=== PATIENT | female | born 1960 | race Caucasian/White ===

== ENCOUNTER → 2016-07-22 | Outpatient (CLI) | payer OTHER ==
--- NOTE | 2016-07-22 16:54 | Diagnostic Imaging Report ---
INDICATION: Pain in the lower back and thoracic spine. FINDINGS: Frontal, lateral, and swimmer's views of the thoracic spine demonstrate no fracture or subluxation. Small anterior osteophytes are seen in the mid to upper thoracic spine. No osseous stenosis is seen. IMPRESSION: There are mild degenerative changes of the thoracic spine. Dictated by: Dictated on workstation # [id number]
--- NOTE | 2016-07-22 16:55 | Diagnostic Imaging Report ---
INDICATION: Back pain onset two years ago, stabbing pain in [id number]-[id number]-nojqr back. No known trauma or injury. 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 No fracture is identified. Disc space narrowing is present at L2-L3 with a 2 mm retrolisthesis. Sclerotic changes are seen to the adjacent endplates. Mild disc space narrowing is present at L3-L4. Ltiq-zo-oqilnbtp disc space narrowing is present at L4-L5 with facet arthropathy. L5-S1 level demonstrates mild disc space narrowing with facet arthropathy. IMPRESSION: Degenerative changes of the lumbar spine are present as above. Dictated by: Dictated on workstation # [id number]
== END ==
LOC: RAD 15:55
PROVIDERS: ATTEND Chiropractor
DX: M47.815 Spondylosis without myelopathy or radiculopathy, thoracolumbar region (principal)
CPT/HCPCS: 72072; 72100

== ENCOUNTER → 2016-09-22 | Outpatient (CLI) | payer OTHER ==
--- NOTE | 2016-09-22 11:08 | Diagnostic Imaging Report ---
PROCEDURE: CT abdomen and pelvis without contrast. TECHNIQUE: Multiple contiguous axial images were obtained through the abdomen and pelvis without the use of intravenous contrast. INDICATION: Abdominal pain. Fever. FINDINGS: The lung bases appear clear. The liver is hypodense compatible with diffuse fatty infiltration. The spleen is mildly enlarged at 13.7 x 6 x 8.8 cm. The pancreas, and the adrenal glands appear unremarkable. Cholecystectomy clips are seen. The abdominal aorta is normal in caliber. No para-aortic significantly enlarged lymph node is seen. The kidneys demonstrate no hydronephrosis. No urinary tract stones are seen. The bladder appears unremarkable. There is suggestion of prior hysterectomy. Correlate with surgical history. There is no bowel obstruction. The appendix appears normal. The cecum is displaced to the midline in the lower abdomen. There is an area of fatty stranding seen that is well marginated and measures 6.6 x 4.5 x 5.3 cm compatible with panniculitis or omental infarct. The tissue edema does not appear to involve the adjacent small bowel loops. There is periumbilical abdominal wall laxity and mild diastasis of the recti seen. No significant free fluid or fluid collection in the abdomen or pelvis is seen. Mild degenerative changes in the lumbar spine is seen. IMPRESSION: 1. A 6.6 cm well defined area of fatty stranding seen in the anterior midline along the lower abdomen is suggestive of panniculitis or fat necrosis. The process does not appear to involve the adjacent small bowel loops. 2. Mild abdominal wall laxity around the umbilicus region. 3. Hepatic steatosis. 4. Mild splenomegaly. Dictated by: Dictated on workstation # [id number]
== END ==
LOC: RAD 10:13
PROVIDERS: ATTEND Family Medicine
DX: R93.5 Abnormal findings on diagnostic imaging of other abdominal regions, including retroperitoneum (principal); K76.0 Fatty (change of) liver, not elsewhere classified; R10.84 Generalized abdominal pain; R50.9 Fever, unspecified
CPT/HCPCS: 74176

== ENCOUNTER → 2016-10-27 | Outpatient (CLI) | payer OTHER ==
--- NOTE | 2016-10-27 11:09 | Diagnostic Imaging Report ---
Left breast diagnostic mammogram. INDICATION: Calcifications found on screening mammogram of 10/13/16. The current study was also evaluated with a Computer Aided Detection (CAD) system. Comparison exam 10/13/16 and 10/04/15 is reviewed. FINDINGS: Magnification views of these calcifications in the central inferior medial aspect of the left breast demonstrate 4 calcifications with coarse and punctate character. No associated mass is seen. IMPRESSION: A few calcifications with coarse and punctate appearance in the central aspect of the inferior medial left breast. They are favored to be benign. Ultrasound evaluation to rule out an associated mass is pending. ACR BI-RADS Category 0: Incomplete. (Needs additional imaging evaluation). Result letter will be mailed to the patient. Note: At least 10% of breast cancer is not imaged by mammography. Dictated by: Dictated on workstation # [id number]
--- NOTE | 2016-10-27 11:13 | Diagnostic Imaging Report ---
EXAMINATION: Left breast ultrasound. INDICATION: Calcifications in the inferior medial aspect of the left breast. FINDINGS: The medial aspect and retroareolar region of the left breast were scanned with no underlying abnormality seen. IMPRESSION: Negative study. The calcifications are likely benign. A 6 month followup left breast mammogram is recommended to observe these calcifications. ACR BI-RADS Category 3: Probably benign findings. Dictated by: Dictated on workstation # [id number]
== END ==
LOC: RAD 08:40
PROVIDERS: ATTEND Obstetrics & Gynecology Female Pelvic Medicine and Reconstructive Surgery
DX: R92.8 Other abnormal and inconclusive findings on diagnostic imaging of breast (principal)
CPT/HCPCS: 76642

== ENCOUNTER → 2017-06-15 | Outpatient (CLI) | payer OTHER ==
--- NOTE | 2017-06-15 19:42 | Diagnostic Imaging Report ---
INDICATION: Left breast calcifications. Patient presents for six-month followup. Correlation is made with prior mammograms from 10/27/2016, 10/13/2016 and 10/04/2015. The current study was also evaluated with a Computer Aided Detection (CAD) system. Patient returned and magnification CC and ML views as well as 3-D CC, MLO and mediolateral views of the left breast were obtained. FINDINGS: Calcifications noted in the lower and slightly inner left breast appear less prominent on today's study and appear benign. No new calcifications are seen. No new mass is detected. Left axilla is unremarkable. IMPRESSION: Stable left mammogram and left breast calcifications. Patient may return to routine annual screening mammography in 6 months. ACR BI-RADS Category 2: Benign findings. Result letter will be mailed to the patient. Note: At least 10% of breast cancer is not imaged by mammography. Dictated by: Dictated on workstation # [id number]
== END ==
LOC: RAD 13:16
PROVIDERS: ATTEND Obstetrics & Gynecology Female Pelvic Medicine and Reconstructive Surgery
DX: R92.1 Mammographic calcification found on diagnostic imaging of breast (principal)

== ENCOUNTER → 2017-11-24 | Outpatient (CLI) | payer BC, OTHER ==
--- NOTE | 2017-11-25 09:21 | Diagnostic Imaging Report ---
Indication: Routine screening. Comparison is made to prior exam from 10/13/2016 and 10/04/2015. 2-D and 3-D bilateral screening mammography was performed with CAD. Scattered fibroglandular densities are identified bilaterally. Benign nodular densities appear stable bilaterally and most suggestive of intraparenchymal lymph nodes. No new mass or malignant-appearing microcalcifications are seen. The axillae are unremarkable. Impression: BI-RADS category 2. No mammographic features suspicious for malignancy are identified. ACR BI-RADS Category 2: Benign findings. Result letter will be mailed to the patient. Note: At least 10% of breast cancer is not imaged by mammography. Dictated by: Dictated on workstation # [id number]
== END ==
LOC: RAD 13:17
PROVIDERS: ATTEND Family Medicine
DX: Z12.31 Encounter for screening mammogram for malignant neoplasm of breast (principal)
CPT/HCPCS: 77067

== ENCOUNTER → 2018-10-01 | Outpatient (CLI) | payer OTHER ==
--- NOTE | 2018-10-01 17:06 | Diagnostic Imaging Report ---
EXAMINATION: Lumbar spine radiographs, 2 views. COMPARISON: July 22, 2016. HISTORY: 58-year-old female, low back pain. FINDINGS: There is a lumbar levocurvature. 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 There is very mild grade 1 retrolisthesis of L2 on L3. There are multilevel mild to moderate disc degenerative changes of the thoracolumbar spine. The facet joints appear grossly unremarkable. There is no identified compression deformity. There are atherosclerotic calcifications. Unremarkable appearance of the sacroiliac joints. Right upper quadrant surgical clips likely relate to prior cholecystectomy. IMPRESSION: 1. 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 2. Lumbar levocurvature. 3. Multilevel mild to moderate disc degenerative changes of the thoracolumbar spine similar in appearance to July 22, 2016. 4. No identified compression deformity. Dictated by: Dictated on workstation # [id number]
--- NOTE | 2018-10-01 17:07 | Diagnostic Imaging Report ---
EXAMINATION: Thoracic spine radiographs, 2 views. COMPARISON: July 22, 2016. HISTORY: 58-year-old female, mid back pain. FINDINGS: There is no identified compression fracture of the thoracic spine. There are multilevel mild/moderate disc degenerative changes of the thoracic spine. Right upper quadrant surgical clips likely relate to prior cholecystectomy. IMPRESSION: 1. Multilevel mild/moderate disc degenerative changes of the thoracic spine. 2. No identified compression deformity of the thoracic spine. Dictated by: Dictated on workstation # [id number]
== END ==
LOC: RAD 16:15
PROVIDERS: ATTEND Nurse Practitioner Family
DX: M51.35 Other intervertebral disc degeneration, thoracolumbar region (principal); Q76.6 Other congenital malformations of ribs
CPT/HCPCS: 72070; 72100

== ENCOUNTER → 2021-04-23 | Outpatient (CLI) | payer OTHER | LOC: WOUNDCARE 09:11 | PROVIDERS: ATTEND Family Medicine | DX: L03.116 Cellulitis of left lower limb (principal); I89.0 Lymphedema, not elsewhere classified; I83.12 Varicose veins of left lower extremity with inflammation | CPT/HCPCS: 99213 ==